=== PATIENT | female | born 1960 | race Hispanic/Latino ===

== ENCOUNTER → 2019-09-19 | Outpatient (CLI) | payer OTHER ==
[~2019-09-19] MED LIST: CALC-1038 PO; NAPR1TAB24 PO; PYRI25TA3 PO; TRAM50TA4 PO
== END | disposition home or self-care (01) ==
LOC: RAH 07:46
PROVIDERS: ATTEND Family Medicine
DX: Z12.31 Encounter for screening mammogram for malignant neoplasm of breast (principal)
CPT/HCPCS: 77067

== ENCOUNTER 2021-05-31 15:26 | Observation (INO) | payer OTHER ==
[~2021-05-31] VITALS: Ht 152.4 cm; Wt 64.4 kg
[2021-05-31 15:56] LABS: BASOPHILS % (AUTO) 0.4 % (0.0-5.0); EOSINOPHILS % (AUTO) 1.3 % (0.0-8.0); HEMATOCRIT 38.9 % (36-48); LYMPHOCYTES % (AUTO) 10.2 % (21.0-51.0); MEAN CORPUSCULAR HEMOGLOBIN 30.9 pg (27.0-33.0); MEAN CORPUSCULAR HGB CONC 36.5 g/dL (32.0-36.0); MEAN CORPUSCULAR VOLUME 84.6 fL (79-99); MONOCYTES % (AUTO) 7.2 % (3.0-13.0); NEUTROPHILS % (AUTO) 77.7 % (40.0-77.0); PLATELET COUNT (AUTO) 30 K/uL (130-400); RED CELL DISTRIBUTION WIDTH 15.1 % (11.0-15.5); WHITE BLOOD COUNT (AUTO) 13.9 K/uL (4.8-10.8)
[2021-05-31 16:09] LABS: CREATININE 0.9 mg/dL (0.5-1.5); POTASSIUM 3.7 mmol/L (3.5-5.1)
[2021-05-31 16:23] LABS: ALBUMIN 3.6 g/dL (3.5-5.0); BILIRUBIN,TOTAL 0.4 mg/dL (0.2-1.0); TOTAL PROTEIN, SERUM 7.6 g/dL (6.0-8.3)
[2021-05-31] MEDS ORDERED: ONDANSETRON 4MG INJ IVP PRN (16:30)
[2021-05-31] MEDS ORDERED: ACETAMINOPHEN 325 MG TAB PO PRN (16:30)
[2021-05-31] MEDS: 0.9%NACL 1000ML 1,000 ML IV SCH (16:30)
[2021-05-31] MEDS ORDERED: CEFTRIAXONE 1G VIAL IVP SCH (16:30)
[2021-05-31] MEDS ORDERED: ACETAMINOPHEN 650 MG SUPPOSITORY RC PRN (16:30)
[2021-05-31 16:49] LABS: INR 0.98 (0.85-1.15); PROTHROMBIN TIME 10.7 SEC (9.6-11.6)
[2021-05-31 16:50] LABS: PARTIAL THROMBOPLASTIN TIME 23.9 SEC (26.3-35.5)
[2021-05-31 17:04] LABS: CHOLESTEROL 192 mg/dL (<200); HDL CHOLESTEROL 37 mg/dL (35-85); LDL DIRECT 93 mg/dL (0-99); TRIGLYCERIDES 524 mg/dL (30-200)
[2021-05-31 17:09] LABS: AMYLASE 80 U/L (25-115); LIPASE 348 U/L (114-286)
[2021-05-31] MEDS ORDERED: DiphenhydrAMINE HCL 50 MG/ML VIAL ONE (17:44)
[2021-05-31] MEDS ORDERED: SOLU-MEDROL 125MG VIAL ONE (17:44)
[2021-05-31] MEDS ORDERED: SOLU-MEDROL 125MG VIAL IVP ONE (18:30)
[2021-05-31] MEDS ORDERED: DiphenhydrAMINE HCL 50 MG/ML VIAL IV ONE (18:30)
[2021-05-31] MEDS: 0.9% NACL 250ML IVPB SCH (18:30)
[2021-05-31] MEDS: DOXYCYCLINE 100MG+NS 250ML IV SCH (18:30)
[2021-05-31] MEDS ORDERED: LEVOFLOXACIN 500 MG/D5W 100 ML 100 ML IV SCH (18:30)
[2021-05-31 21:09] LABS: APPEARANCE,URINE Clear (CLEAR); BILIRUBIN,URINE Negative (NEGATIVE); COLOR,URINE Yellow (YELLOW); GLUCOSE, URINE (UA) Negative (NEGATIVE); KETONES,URINE Negative (NEGATIVE); LEUKOCYTE ESTERASE ,URINE Small (NEGATIVE); NITRATE,URINE Negative (NEGATIVE); OCCULT BLOOD,URINE Negative (NEGATIVE); PH,URINE 5.5 (5.0-8.0); PROTEIN,URINE Negative (NEGATIVE); UROBILINOGEN,URINE 0.2 mg/dL (0.2-1.0)
[2021-05-31] MEDS: PANTOPRAZOLE 40 MG/VIAL IVP SCH (21:21)
[2021-05-31 21:36] LABS: BACTERIA,URINE Rare /HPF (None Seen); RBC,URINE 0-1 /HPF (0-1); SQUAMOUS EPITHELIAL CELL,UR Rare /HPF (0-2); TRANSITIONAL EPI CELLS,URINE Few /HPF (None Seen)
[2021-06-01] MEDS: 0.9%NACL 1000ML 1,000 ML IV SCH (02:30)
[2021-06-01 06:15] LABS: HEMATOCRIT 38.5 % (36-48); MEAN CORPUSCULAR HEMOGLOBIN 30.8 pg (27.0-33.0); MEAN CORPUSCULAR HGB CONC 35.6 g/dL (32.0-36.0); MEAN CORPUSCULAR VOLUME 86.5 fL (79-99); PLATELET COUNT (AUTO) 44 K/uL (130-400); RED BLOOD CELL COUNT(AUTO) 4.45 MIL/uL (4.00-5.50); RED CELL DISTRIBUTION WIDTH 15.7 % (11.0-15.5); WHITE BLOOD COUNT (AUTO) 14.3 K/uL (4.8-10.8)
[2021-06-01 06:24] LABS: CREATININE 1.2 mg/dL (0.5-1.5); POTASSIUM 3.5 mmol/L (3.5-5.1)
[2021-06-01 06:38] LABS: HEMOGLOBIN A1C 7.6 % (4.0-6.0)
[2021-06-01 07:49] LABS: LYMPHOCYTES % (MANUAL) 12 % (22-44); MAN.DIFF COMMENT-IMPRESSION MANUAL DIFFERENTIAL; MONOCYTES % (MANUAL) 1 % (2-9); PLATELET MORPHOLOGY COMMENT MARKED DECREASE; SEGMENTED NEUTROPHILS % 87 % (40-70)
[2021-06-01] MEDS: CALCIUM CARB 500MG PO SCH (09:00)
[2021-06-01 09:15] LABS: LIPASE 170 U/L (114-286); TRIGLYCERIDES 372 mg/dL (30-200)
[2021-06-01] MEDS: DOXYCYCLINE 100MG+NS 250ML IV SCH ×2 (09:29→18:39)
[2021-06-01] MEDS: PANTOPRAZOLE 40 MG/VIAL IVP SCH ×2 (09:30→21:14)
[2021-06-01] MEDS: 0.9% NACL 250ML IVPB SCH ×2 (09:30→18:39)
[2021-06-01] MEDS ORDERED: METH25VI17 IJ (10:46)
[2021-06-01] MEDS ORDERED: DULA1.5P SQ (10:46)
[2021-06-01] MEDS ORDERED: METF500S7 PO (10:52)
[2021-06-01] MEDS ORDERED: FOLI0.8T3 PO (10:52)
[2021-06-01] MEDS ORDERED: MELO-108 PO (10:52)
[2021-06-01] MEDS ORDERED: PRED5TAB PO (10:52)
[2021-06-01] MEDS ORDERED: UPAD15TA PO (10:52)
[2021-06-01] MEDS ORDERED: GLIP5TAB11 PO (10:52)
[2021-06-01] MEDS ORDERED: IRBE300T18 PO (10:52)
[2021-06-01] MEDS ORDERED: ALLO100T PO (10:52)
[2021-06-01] MEDS ORDERED: IOHEXOL-350 75 ML VIAL IV ONE (11:57)
[2021-06-01] MEDS: TRAMADOL HCL 50 MG TABLET PO PRN (12:50)
[2021-06-01] MEDS ORDERED: LEVOFLOXACIN 250 MG/D5W 50ML 50 ML IVPB SCH (18:30)
[2021-06-02] MEDS: 0.9%NACL 1000ML 1,000 ML IV SCH ×2 (06:43→06:51)
[2021-06-02] MEDS: 0.9% NACL 250ML IVPB SCH (06:43)
[2021-06-02] MEDS: DOXYCYCLINE 100MG+NS 250ML IV SCH (06:43)
[2021-06-02 07:00] VITALS: BP 133/51
[2021-06-02 08:41] LABS: ALBUMIN 3.2 g/dL (3.5-5.0); BILIRUBIN,TOTAL 0.3 mg/dL (0.2-1.0); CREATININE 0.9 mg/dL (0.5-1.5); POTASSIUM 3.1 mmol/L (3.5-5.1); TOTAL PROTEIN, SERUM 6.6 g/dL (6.0-8.3)
[2021-06-02 08:42] LABS: HEMATOCRIT 32.9 % (36-48); MEAN CORPUSCULAR HEMOGLOBIN 30.6 pg (27.0-33.0); MEAN CORPUSCULAR HGB CONC 34.7 g/dL (32.0-36.0); MEAN CORPUSCULAR VOLUME 88.2 fL (79-99); RED BLOOD CELL COUNT(AUTO) 3.73 MIL/uL (4.00-5.50); RED CELL DISTRIBUTION WIDTH 15.9 % (11.0-15.5); WHITE BLOOD COUNT (AUTO) 7.1 K/uL (4.8-10.8)
[2021-06-02] MEDS: CALCIUM CARB 500MG PO SCH (10:59)
[2021-06-02 11:00] VITALS: BP 130/46
[2021-06-02] MEDS: TRAMADOL HCL 50 MG TABLET PO PRN (11:04)
[2021-06-02] MEDS: PANTOPRAZOLE 40 MG/VIAL IVP SCH (11:05)
[2021-06-02] MEDS ORDERED: DOXY100C5 PO (12:20)
[2021-06-02] MEDS ORDERED: CYANOCOBALAMIN (VITAMIN B-12) 1,000 MCG TABLET PO SCH (13:30)
[2021-06-03 12:11] LABS: ROCKY MT SPOTTED FEVER IGG <1:64 (Neg:<1:64); TYPHUS FEVER AB IGG <1:64 (Neg:<1:64)
== END 2021-06-02 15:10 | disposition home or self-care (01) ==
LOC: EDH 15:26 → EDHIP 15:28 → UNDOADMOB 16:07 → EDHIP 16:07 → 3AH 06-02 05:22
PROVIDERS: ADMIT Internal Medicine; ATTEND Internal Medicine
DX: R53.1 Weakness (principal); Z20.822 Contact with and (suspected) exposure to COVID-19; D84.9 Immunodeficiency, unspecified; D69.6 Thrombocytopenia, unspecified; K76.0 Fatty (change of) liver, not elsewhere classified; E78.5 Hyperlipidemia, unspecified; E78.1 Pure hyperglyceridemia; M06.9 Rheumatoid arthritis, unspecified; D64.9 Anemia, unspecified; R10.13 Epigastric pain; E11.9 Type 2 diabetes mellitus without complications; I10 Essential (primary) hypertension; Z79.52 Long term (current) use of systemic steroids; Z79.899 Other long term (current) drug therapy; Z79.84 Long term (current) use of oral hypoglycemic drugs; Z87.440 Personal history of urinary (tract) infections
CPT/HCPCS: 36415 ×3; 71045; 71275; 74176; 76705; 80048; 80053 ×2; 80061; 81001; 82150; 82550; 82948 ×2; 83036; 83690 ×2; 83874; 84443; 84478; 84484; 85025 ×2; 85027; 85378; 85610; 85730; 86757; 87040 ×2; 87077; 87088; 87186; 87635; 96361 ×2; 96365; 96366 ×2; 96368; 96375; 96376 ×2; C9113 ×3; G0378 ×47; J0696; J1200; J1956 ×2; J2930; J3490 ×3; J7030 ×2; Q9967

== ENCOUNTER → 2022-11-29 | Outpatient (CLI) | payer OTHER ==
[~2022-11-29] MED LIST changes: +ALLO100T PO; +DOXY100C5 PO; +DULA1.5P SQ; +FOLI0.8T3 PO; +GLIP5TAB11 PO; +IRBE300T18 PO; +MELO-108 PO; +METF500S9 PO
== END | disposition home or self-care (01) ==
LOC: RAH 08:34
PROVIDERS: ATTEND Family Medicine
DX: Z12.31 Encounter for screening mammogram for malignant neoplasm of breast (principal)
CPT/HCPCS: 77067